=== PATIENT | male | born 1950 | race Caucasian/White ===

== ENCOUNTER → 2017-03-21 | Outpatient (CLI) | payer OTHER ==
[~2017-03-21] VITALS: Ht 180.3 cm; Wt 87.1 kg
[~2017-03-21] MED LIST: ALDACTONE25 MG PO; BYSTOLIC 5 MG5 M1 PO; FLOMAX0.4 MG PO; LISINOPRIL2.5 MG PO; NORVASC5 MG PO; XARELTO20 MG PO; ZYRTEC10 M4 PO
--- NOTE | ~2017-03-21 | DSS ---
[facility] [place] [address] [place] [address] SHORT STAY SUMMARY Name: NORMARACQUEL KAELYN Room #: REG CLTabitha Singh.#: [id number] Admission: 03/21/17 Attend Phys: Jed Green MD, FA Discharge: Date of : 54 Report #: [id number] THIS REPORT FOR: //name// CC: Jed Waldron MD PRIMARY CARE PHYSICIAN: Jed Can M.D. DISCHARGE DIAGNOSES: 1. Hypertension. 2. Non-rheumatic aortic valve insufficiency. 3. Mitral regurgitation. 4. Persistent atrial fibrillation. 5. Nonischemic cardiomyopathy. 6. Previous removal of the melanoma. 7. Prostatism. CONSULTANTS: None. PROCEDURES: Transesophageal echocardiogram. HISTORY OF PRESENT ILLNESS: The patient is a 67-year-old white male who was brought to the Outpatient Department to undergo a LUIS ARMANDO. The patient is cousin and is . He is retired at this time. He has a long history of hypertension and aortic insufficiency, treated medically. Recently complains of fatigue and shortness of breath and is found to be in atrial fibrillation. He was started on Bystolic for rate control and an aspirin a day. I saw him in the clinic on February 06. He becomes short of breath with exertion. He has frequent nocturia. Echocardiogram in the office on February 06 showed an ejection fraction of 30% with fuqjvuvy-hu-fjpaho aortic insufficiency and mild mitral regurgitation. I recommended anticoagulation with Xarelto. He was started on spironolactone. The patient then underwent an outpatient cardiac catheterization at [place] because of possible need for aortic valve replacement and the fact he had a previous coronary calcium score is significantly elevated. He actually had a right and left heart catheterization done by myself at [place]. This showed ccwfvfvw-gn-lpptii aortic insufficiency, at least mild mitral regurgitation and ejection fraction of only 25%. Right heart catheterization actually showed normal filling pressures. He returned to see my nurse practitioner a week later who suggested switching him from amlodipine to lisinopril, but the patient was concerned he developed a cough and he did not take the lisinopril. However, at this time, he denies any significant chest pain, shortness of breath, palpitations, lightheadedness and bleeding. Because of possible need for aortic valve replacement, I recommended a LUIS ARMANDO at this time. [facility] [address] [place] [address] SHORT STAY SUMMARY Name: RACQUEL GREEN II Room #: REG CLI ShawnKerrie#: [id number] Admission: 03/21/17 Attend Phys: Jed Green MD, FA Discharge: Date of : 54 Report #: [id number] PAST MEDICAL HISTORY: Otherwise significant for removal of the melanoma. He has a history of hypertension, but no history of diabetes. CURRENT MEDICATIONS: Consists of Bystolic 10 mg a day. He stopped his Xarelto 2 days ago, amlodipine 10 mg a day and spironolactone 25 mg a day. He recently saw Dr. Can as a primary care physician who started him an alpha jeffrey because of prostatism. PHYSICAL EXAMINATION: GENERAL: Revealed a middle-aged male. VITAL SIGNS: Blood pressure 120/70 and pulse is 70. CHEST: Clear to auscultation. CARDIAC: Irregular rhythm, grade 2 systolic ejection murmur. ABDOMEN: Soft. EXTREMITIES: Has no edema. SKIN: Warm and dry. LABORATORY DATA: His recent lab work on 02/28/2017: Sodium 141, potassium 4.2 and creatinine 0.9. Hemoglobin 16.3. Cholesterol 158, triglycerides 77, HDL 35 and LDL 108. HOSPITAL COURSE: The patient was brought to the Outpatient Department at [facility]. I performed a LUIS ARMANDO. He tolerated the procedure without complications. Results showed moderate mitral dilatation. The left ventricle was mildly dilated with an ejection fraction of only 30%-35%. No thrombus was noted. No evidence of a shunt. The aortic valve was trileaflet and mildly calcified. There is rbpxfkea-il-pgdkai aortic insufficiency. There was only mild mitral and tricuspid insufficiency. The results were discussed with the patient and his . My impression is that he has a nonischemic cardiomyopathy. I am concerned that if his aortic insufficiency is not corrected, he will continue developed left ventricular dilatation and decreased ejection fraction. Therefore, recommended consideration for aortic valve replacement. It does not appear he would need mitral valve repair, in fact the mild amount of mitral regurgitation has been official because his cardiomyopathy in terms of afterload reduction. The patient was discharged to continue his home medications including Bystolic 10 mg a day for rate control of his atrial fibrillation. He was to resume his Xarelto 20 mg a day, spironolactone 25 mg a day and Norvasc 10 mg a day. I preferred not to switch the patient's medications at this time because I suspect he will be undergoing aortic valve replacement in the near future. However, in the future, I would consider switching him from amlodipine to either an ARB or an RUBINA inhibitor. I would also consider switching him from Bystolic to carvedilol for rate control because of his cardiomyopathy. He was to continue his alpha jeffrey for prostatism. He was to contact my office if he had any bleeding or increasing shortness of breath. I recommend that he follow up Dr. Can for routine medical care. He is [facility] [address] [place] [address] SHORT STAY SUMMARY Name: RACQUEL GREEN II Room #: REG SVEN Puga#: [id number] Admission: 03/21/17 Attend Phys: Jed Green MD, FA Discharge: Date of : 54 Report #: [id number] scheduled to see Dr. Waldron next week in the Cardiology Clinic at [facility] for consideration of aortic valve replacement. He does take Ambien for occasional insomnia. He is scheduled to see me in the Cardiology Clinic after followup with Dr. Waldron. <ELECTRONICALLY SIGNED> By: Jed Green MD, FAC 03/25/17 1647 1125 1212 Jed Green MD, FACC /nt
--- NOTE | ~2017-03-21 | TEE ---
[facility] [address] [place] [address] TRANSESOPHAGEAL ECHOCARDIOGRAM Name: RACQUEL GREEN II Room #: REG CL FranciscoKerrie#: [id number] Admission: 03/21/17 Attend Phys: Jed Green MD Discharge: Date of : 54 Date of Service: 03/21/17 1721 Report #: [id number] THIS REPORT FOR: //name// APPROVED REPORT Study performed: 03/21/2017 08:21:27 EXAM: Comprehensive 2D, Doppler, and color-flow Echocardiogram Patient Location: [facility] Room #: 9 Status: routine BSA: 2.07 HR: 96 bpm BP: 138/75 mmHg Other Information Study Quality: Excellent Indications Aortic Valve Disease Mitral Valve Disease Assess Ejection Fraction Atrial Fibrillation Echo Enhancing Agent Indication: Rule out Shunt Agent(s) / Amount(s) Used: Agitated Saline 14 cc Procedure After obtaining informed consent, patient underwent transesophageal echo in the [facility] [employer]. Type of Sedation : Conscious Sedation Sedation was administered by Daisy Muñiz RN. Sedation start time: 951 Case end Time: 1006 Versed (5 mg) Fentanyl (50mcg) Transesophageal probe was inserted and advanced into esophagus without difficulty by Jed Green MD, [facility]. Echo enhancement indication: R/O Septal defect. Echo enhancement agent administered: Agitated Saline The LUIS ARMANDO was performed without complications. Throughout the procedure, the blood pressure, pulse oximetry, cardiac rhythm, and rate were monitored. The patient tolerated the procedure without adverse effects. Recovery from conscious sedation was uneventful and vital signs were [facility] [address] [place] [address] TRANSESOPHAGEAL ECHOCARDIOGRAM Name: RACQUEL GREEN II Room #: REG [facility] [id number] Admission: 03/21/17 Attend Phys: Jed Green MD Discharge: Date of : 54 Date of Service: 03/21/17 1721 Report #: [id number] stable. Left Ventricle Left ventricle is mildly dilated. There is global hypokinesis of the left ventricle. There is normal left ventricular wall thickness. Left ventricular ejection fraction is moderately decreased. LVEF is 30-35%. Right Ventricle The right ventricle is normal size. The right ventricular systolic function is normal. Atria Left atrium is moderately dilated. Interatrial septum is intact without evidence of ASD or PFO. no thrombus noted in the left atrial appendage no evidence of shunt noted by bubble study Right atrium is moderately dilated. Aortic Valve The Aortic valve is sclerotic. Moderate to severe aortic regurgitation There is no aortic valvular stenosis. Mitral Valve The mitral valve is normal in structure. Mild mitral regurgitation. No evidence of mitral valve stenosis. Tricuspid Valve The tricuspid valve is normal in structure. There is mild tricuspid regurgitation. Pulmonic Valve The pulmonary valve is normal in structure. There is no pulmonic valvular regurgitation. Great Vessels The aortic root is normal in size. . Pericardium There is no pericardial effusion. <Conclusion> Left ventricle is mildly dilated. LVEF is 30-35%. Left atrium is moderately dilated. Right atrium is moderately dilated. [facility] [address] [place] [address] TRANSESOPHAGEAL ECHOCARDIOGRAM Name: RACQUEL GREEN II Room #: REG CL Ann#: [id number] Admission: 03/21/17 Attend Phys: Jed Green MD Discharge: Date of : 54 Date of Service: 03/21/171720 Report #: [id number] Moderate to severe aortic regurgitation Mild mitral regurgitation. <ELECTRONICALLY SIGNED> By: Jed Green MD, [facility] 03/21/171720 20 20 Jed Green MD, FACC /INF
[2017-03-21 08:30] VITALS: BP 138/75
== END | disposition home or self-care (01) ==
LOC: CATH 07:33
DX: I08.3 Combined rheumatic disorders of mitral, aortic and tricuspid valves (principal); I11.0 Hypertensive heart disease with heart failure; I50.9 Heart failure, unspecified; I25.10 Atherosclerotic heart disease of native coronary artery without angina pectoris; I42.8 Other cardiomyopathies; Z95.5 Presence of coronary angioplasty implant and graft; Z82.49 Family history of ischemic heart disease and other diseases of the circulatory system; Z85.828 Personal history of other malignant neoplasm of skin; Z98.890 Other specified postprocedural states; Z88.1 Allergy status to other antibiotic agents; Z91.040 Latex allergy status; Z79.899 Other long term (current) drug therapy

== ENCOUNTER 2017-06-19 11:14 | Inpatient (IN) | payer OTHER ==
[~2017-06-19] VITALS: Ht 180.3 cm; Wt 87.9 kg
[2017-06-19] VITALS (20 sets, daily range): BP systolic 105–149; BP diastolic 68–110
--- NOTE | ~2017-06-19 | EKG ---
[address] [place] [address] [place] [address] ELECTROCARDIOGRAM REPORT Name: RACQUEL GREEN KAELYN Room #: 245-P ADM IN M.R.#: [id number] Admission: 06/19/17 Attend Phys: Ruth Currie MD Discharge: Date of : 54 Report #: [id number] THIS REPORT FOR: //name// [facility] Test Date: 2017-06-20 Test Time: 12:54:53 Pat Name: RACQUEL GREEN Department: Room: 245 P Gender: M Lead Performance Support Analyst: Yoli MILLS : 1950 Requested By: Jed Green Order Number: [id number] MD: Chuy Tinajero Measurements Intervals [place] Rate: 54 P: 200 VA: 203 QRS: -50 QRSD: 204 T: 117 QT: 549 QTc: 521 Interpretive Statements Sinus or ectopic atrial rhythm Left bundle branch block Compared to ECG 06/19/2017 12:28:49 Ectopic atrial rhythm now present Left-axis deviation no longer present Electronically Signed On 06-21-2017 7:52:20 TENNIS DESK TEAM MEMBER by Chuy Tinajero [email or web address] <ELECTRONICALLY SIGNED> By: Chuy Tinajero MD, FAC 06/21/17 0752 1254 1254 Chuy Tinajero MD, [facility] /EPI
--- NOTE | ~2017-06-19 | EKG ---
[address] [place] [address] ELECTROCARDIOGRAM REPORT Name: RACQUEL GREEN Room #: 245-P ADM IN M.R.#: [id number] Admission: 06/19/17 Attend Phys: Ruth Currie MD Discharge: Date of : 54 Report #: [id number] THIS REPORT FOR: //name// [facility] ED Test Date: 2017-06-19 Test Time: 12:28:49 Pat Name: RACQUEL GREEN Department: Room: Count includes the [facility] Gender: M Data Coordinator: [email or web address] : 1950 Requested By: Jannet Silverio Order Number: [id number] MD: Chuy Tinajero Measurements Intervals [place] Rate: 115 P: 0 VT: 75 QRS: -62 QRSD: 195 T: 128 QT: 408 QTc: 565 Interpretive Statements Wide-complex tachycardia Leftward axis Left bundle branch block No previous ECG available for comparison Electronically Signed On 06-20-2017 9:23:22 ACCORDION TUNER by Chuy Tinajero [email or web address] <ELECTRONICALLY SIGNED> By: Chuy Tinajero MD, [facility] 06/20/17 0923 D: 128 27 Chuy Tinajero MD, FACC /EPI
--- NOTE | ~2017-06-19 | EKG ---
[address] [place] [address] ELECTROCARDIOGRAM REPORT Name: RACQUEL GREEN ANAND ART Room #: 245-P ADM IN M.R.#: [id number] Admission: 06/19/17 Attend Phys: Ruth Currie MD Discharge: Date of : 54 Report #: [id number] THIS REPORT FOR: //name// [facility] Test Date: 2017-06-20 Test Time: 06:51:25 Pat Name: RACQUEL GREEN Department: Room: 245 P Gender: M Psychological Operations Officer: : 1950 Requested By: Jed Green Order Number: [id number] MD: Chuy Tinajero Measurements Intervals [place] Rate: 82 P: 245 CO: 225 QRS: -60 QRSD: 197 T: 117 QT: 475 QTc: 555 Interpretive Statements Atrial flutter with a controlled ventricular response Borderline prolonged CO interval Left bundle branch block No previous ECG available for comparison Electronically Signed On 06-21-2017 7:39:03 CHIROPRACTIC TEACHER by Chuy Tinajero [email or web address] <ELECTRONICALLY SIGNED> By: Chuy Tinajero MD, [facility] 06/21/17 0739 0651 0651 Chuy Tinajero MD, FACC /EPI
--- NOTE | ~2017-06-19 | EKG ---
[address] [place] [place] [address] ELECTROCARDIOGRAM REPORT Name: RACQUEL GREEN KAELYN Room #: 208-P ADM IN M.R.#: [id number] Admission: 06/19/17 Attend Phys: Ruth Currie MD Discharge: Date of : 54 Report #: [id number] THIS REPORT FOR: //name// [facility] Test Date: 2017-06-22 Test Time: 06:46:21 Pat Name: RACQUEL GREEN Department: Room: 208 P Gender: M Evaluation Assistant: DULCE : 1950 Requested By: Jed Green Order Number: [id number] MD: Chuy Tinajero Measurements Intervals [place] Rate: 66 P: 255 WI: 229 QRS: -60 QRSD: 207 T: 127 QT: 525 QTc: 551 Interpretive Statements Sinus rhythm with first-degree AV block Left bundle branch block Compared to ECG 06/21/2017 07:04:52 No significant change was found Electronically Signed On 06-22-2017 9:21:45 BROADCAST PRODUCER by Chuy Tinajero [email or web address] <ELECTRONICALLY SIGNED> By: Chuy Tinajero MD, [facility] 12920 5 5 Chuy Tinajero MD, [facility] /EPI
--- NOTE | ~2017-06-19 | EKG ---
[place] [address] [facility] [place] [address] ELECTROCARDIOGRAM REPORT Name: RACQUEL GREEN Room #: 245-P ADM IN M.R.#: [id number] Admission: 06/19/17 Attend Phys: Ruth Currie MD Discharge: Date of : 54 Report #: [id number] THIS REPORT FOR: //name// [facility] ED Test Date: 2017-06-19 Test Time: 11:18:08 Pat Name: RACQUEL GREEN Department: Room: [facility] Gender: M Automotive Technician Instructor: [id number] : 1950 Requested By: Jannet Silverio Order Number: [id number] MD: Chuy Tinajero Measurements Intervals [place] Rate: 174 P: 74 [place]: 133 QRS: -65 QRSD: 176 T: 124 QT: 331 QTc: 564 Interpretive Statements Extreme tachycardia with wide complex, no further rhythm analysis attempted Baseline wander in lead(s) V5 No previous ECG available for comparison Electronically Signed On 06-20-2017 9:21:57 BARNWORKER GROOM by Chuy Tinajero [email or web address] <ELECTRONICALLY SIGNED> By: Chuy Tinajero MD, [facility] 06/20/17 0921 17 Chuy Tinajero MD, [facility] /EPI
--- NOTE | ~2017-06-19 | EKG ---
[address] [place] [address] ELECTROCARDIOGRAM REPORT Name: RACQUEL GREEN KAELYN Room #: 245-P ADM IN M.R.#: [id number] Admission: 06/19/17 Attend Phys: Ruth Currie MD Discharge: Date of : 54 Report #: [id number] THIS REPORT FOR: //name// [facility] Test Date: 2017-06-21 Test Time: 07:04:52 Pat Name: RACQUEL GREEN Department: Room: 245 P Gender: M Consultant Dietitian: jonathan : 1950 Requested By: Jed Green Order Number: [id number] MD: Chuy Tinajero Measurements Intervals [place] Rate: 75 P: [place]: QRS: -55 QRSD: 204 T: 117 QT: 500 QTc: 559 Interpretive Statements Sinus rhythm Left bundle branch block Compared to ECG 06/19/2017 12:28:49 No significant change was found Electronically Signed On 06-21-2017 8:28:07 CLAMSHELL OPERATOR by Chuy Tinajero [email or web address] <ELECTRONICALLY SIGNED> By: Chuy Tinajero MD, [facility] 06/21/17 0828 3 3 Chuy Tinajero MD, [facility] /EPI
--- NOTE | ~2017-06-19 | CATHLAB ---
[facility] [address] [place] [address] INVASIVE PROCEDURE REPORT Name: RACQUEL GREEN II Room #: 208-P [facility] IN M.R.#: [id number] Admission: 06/19/17 Attend Phys: Ruth Currie Discharge: Date of : 54 Date of Service: 06/20/17 1246 Report #: [id number] THIS REPORT FOR: //name// CC: Jed Currie DATE OF SERVICE: 06/20/2017 TITLE OF PROCEDURE: Direct current cardioversion of atrial tachycardia. INDICATIONS: The patient was noted to be in atrial tachycardia with 2:1 ventricular response rate. The patient had been loaded with amiodarone and was on Xarelto at the time of the procedure. DESCRIPTION OF PROCEDURE: The patient brought to the cardiac catheterization lab in the fasting state after signing informed consent. Hands-free cardioversion patches were applied in the anterior and posterior location. Moderate sedation was accomplished by administering a total of 5 mg of Versed and 75 mcg of fentanyl intravenously in divided doses. The patient was then cardioverted with 50 joules of direct current energy. The patient converted to sinus bradycardia. The patient tolerated the procedure well and was transferred to a monitored bed in stable condition. IMPRESSION: Successful direct current cardioversion of an atrial tachycardia to sinus bradycardia. <ELECTRONICALLY SIGNED> By: Jed Green MD, [facility] 06/21/17 1625 1246 1843 Jed Green MD, FACC /nt
--- NOTE | ~2017-06-19 | 2DMMODE ---
[facility] [address] [place] [address] 2 D/M-MODE ECHOCARDIOGRAM Name: NORMARACQUEL MICHEL Room #: 245-P ADM IN M.R.#: [id number] Admission: 06/19/17 Attend Phys: Ruth Currie Discharge: Date of : 54 Date of Service: 06/20/17 1507 Report #: [id number] THIS REPORT FOR: //name// APPROVED REPORT Study performed: 06/20/2017 14:18:04 EXAM: Comprehensive 2D, Doppler, and color-flow Echocardiogram Patient [facility]: [facility] Room #: [facility] Status: routine BSA: 2.13 HR: 59 bpm BP: 106/94 mmHg Other Information Study Quality: Excellent Indications Aflutter status post cardioversion. Hx: AVR (05/2017) Cardiomyopathy 2D Dimensions RVDd: 51.24 mm LVEF(%): 40.80 (>50%) IVSd: 11.00 (7-11mm) LVOT Diam: 22.56 (18-24mm) LVDd: 73.51 mm PWd: 11.00 (7-11mm) Ascending Ao: 36.16 (22-36mm) LVDs: 58.34 (25-40mm) Aortic Root: 33.96 mm Duque's LVEF: 40.80 % Volumes Left Atrial Volume (Systole) Single Plane 4CH: 127.54 mL Single Plane 2CH: 163.33 mL Aortic Valve AoV Peak Francis.: 1.89 m/s AO Peak Gr.: 14.21 mmHg LVOT Max P.78 mmHg AO Mean Gr.: 7.94 mmHg AO V2 Mean: 1.33 m/s LVOT Max V: 0.97 m/s AO V2 VTI: 34.87 cm PEDRO Vmax: 2.06 cm2 Mitral Valve MV Decel. Time: 194.81 ms [facility] [place] [address] 2 D/M-MODE ECHOCARDIOGRAM Name: RACQUEL GREEN Room #: 245-P [facility] IN ..#: [id number] Admission: 06/19/17 Attend Phys: Ruth Currie Discharge: Date of : 54 Date of Service: 06/20/17 1507 Report #: [id number] E Max Francis.: 0.78 m/s IVRT: 101.50 ms Pulmonary Valve PV Peak Francis.: 1.08 m/s PV Peak Gr.: 4.67 mmHg Tricuspid Valve TR Peak Francis.: 2.78 m/s RAP Estimate: 15.00 mmHg TR Peak Gr.: 31.00 mmHg PA Pressure: 46.00 mmHg Left Ventricle Left ventricle is severely dilated. There is global hypokinesis of the left ventricle. There is normal left ventricular wall thickness. Left ventricular systolic function is severely decreased. LVEF is 25%. This study is not technically sufficient to allow evaluation of the LV diastolic function. Right Ventricle Right ventricle is moderately dilated. Right ventricle is moderately hypokinetic. Atria Left atrium is severely dilated. Small PFO is noted. Right atrium is severely dilated. Aortic Valve Bioprosthetic aortic valve is present. Trace to mild aortic regurgitation. There is no aortic valvular stenosis. Mitral Valve The mitral valve is normal in structure. Mild to Moderate mitral regurgitation. Tricuspid Valve The tricuspid valve is normal in structure. Moderate tricuspid regurgitation. Estimated PAP is 46mmHg. Pulmonic Valve The pulmonary valve is normal in structure. Trace pulmonic regurgitation. Great Vessels The aortic root is normal in size. The ascending aorta is normal in size. IVC is dilated and collapses <50% with inspiration. [address] [address] 2 D/M-MODE ECHOCARDIOGRAM Name: NORMARACQUEL ANAND ART Room #: 245-P [facility] IN ..#: [id number] Admission: 06/19/17 Attend Phys: Ruth Currie Discharge: Date of : 54 Date of Service: 06/20/17 1507 Report #: [id number] Pericardium Trace pericardial effusion. <Conclusion> Left ventricle is severely dilated. There is global hypokinesis of the left ventricle. LVEF is 25%. Right ventricle is moderately dilated. Right ventricle is moderately hypokinetic. Left atrium is severely dilated. Right atrium is severely dilated. Bioprosthetic aortic valve is present. There is no aortic valvular stenosis. Trace to mild aortic regurgitation. Mild to Moderate mitral regurgitation. Trace pericardial effusion. <ELECTRONICALLY SIGNED> By: Sharath Cyr MD, FACC 06/20/17 1507 1507 1507 Sharath Cyr MD, FACC /INF
--- NOTE | ~2017-06-19 | HC ---
[facility] [place] [address] CONSULTATION Name: RACQUEL GREEN II Room #: 208-P ADM IN M.R.#: [id number] Admission: 06/19/17 Attend Phys: Ruth Currie MD Discharge: Date of : 54 Report #: [id number] THIS REPORT FOR: //name// CC: Jed Currie DATE OF SERVICE: 06/19/2017 HISTORY OF PRESENT ILLNESS: The patient is a 67-year-old white male who came to the Emergency Room complaining of weakness and shortness of breath. The patient had previous echocardiogram showing evidence of moderate aortic insufficiency. He presented this summer complained of fatigue and shortness of breath. He was found to be in atrial fibrillation. He was started on Bystolic for rate control and an aspirin a day. I saw him in the office and had an echocardiogram that showed ejection fraction of only 30% with moderate to severe aortic insufficiency. I then performed coronary angiography that showed minimal coronary artery disease. He underwent a LUIS ARMANDO that confirmed significant aortic insufficiency. 2-1/2 weeks ago, he underwent aortic valve replacement at [facility] by Dr. Ken Waldron and included a Maze procedure. His postoperative course was uncomplicated. He was placed back on Xarelto. Since his discharge, he has gradually improved. He returned to see Dr. Waldron in the surgical clinic. His incision is healing well. Several days ago, he had a significant nosebleed. He contacted my office and I instructed him to discontinue the Xarelto and aspirin. His nosebleed resolved. However, he contacted my office this morning and he complained of significant lightheadedness, shortness of breath, fatigue. He attempted to take his blood pressure at home, but it would not register. I instructed him to come to the Emergency Room. When he arrived in the Emergency Room today, he was found to be a wide complex tachycardia. He was admitted for further evaluation and treatment. He denies any significant chest pain, fever. He does have a chronic cough. He has had no significant edema, syncope. PAST MEDICAL HISTORY: Otherwise significant for removal of a melanoma. He has a history of hypertension, but no history of diabetes. CURRENT MEDICATIONS: Consists of Flomax, carvedilol, Proscar, losartan. He has previously been on amlodipine. ALLERGIES: HE HAS INTOLERANCE TO LATEX AND NEOMYCIN. FAMILY HISTORY: His father had coronary artery bypass surgery. SOCIAL HISTORY: He is . 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 He lives in [place], [place]. He is actually my first cousin. He has no history of smoking or alcohol abuse. [facility] [address] [place] [address] CONSULTATION Name: NORMARACQUEL ANAND Room #: 208-P [facility] IN M.R.#: [id number] Admission: 06/19/17 Attend Phys: Ruth Currie MD Discharge: Date of : 54 Report #: [id number] REVIEW OF SYSTEMS: He has had no history of stroke, asthma, peptic ulcer disease. He does have a chronic cough. He has had insomnia. No history of liver disease, kidney disease, psychiatric illness, chronic skin condition. PHYSICAL EXAMINATION: GENERAL: Revealed a middle-aged male lying in bed, he appeared in no acute distress. VITAL SIGNS: His blood pressure of 100/60, pulse is 110, Respirations nonlabored, saturation 99%. HEENT: He is anicteric, conjunctiva pink. Mucous members appear moist. NECK: Veins do not appear distended. No carotid bruits. CHEST: Clear to auscultation. CARDIOVASCULAR: Irregular tachycardia, grade 2 systolic ejection murmur. ABDOMEN: Soft. EXTREMITIES: Had trace edema. Dorsalis pedis pulse 1+ bilaterally. SKIN: Cool and dry. LABORATORY DATA: ECG on admission showed a wide complex tachycardia with axis, left bundle branch block morphology. Follow up ECG after amiodarone appears to show atrial flutter with a variable ventricular response rate. His workup in the Emergency Room, sodium 133, creatinine 1.4, glucose 219. Troponin 0.10. INR 1.4. White blood cell count 9.2, hemoglobin 11.8. He had a CT scan of the chest that showed cardiomegaly, small pericardial effusion, small pleural effusions. IMPRESSION AND RECOMMENDATIONS: 1. Wide complex tachycardia. Suspect atrial flutter. The patient on amiodarone. I would resume anticoagulation. IF he fails to convert, I would consider cardioversion. 2. History of hypertension. I would hold his beta jeffrey, ARB and calcium jeffrey at this time. 3. Status post aortic valve replacement using tissue valve. Recommend repeat echocardiogram after the patient has been cardioverted. 4. Cardiomyopathy. I would consider resuming spironolactone. 5. Previous removal of melanoma. 6. Frequent coughing. Noted even before his surgery. I would recommend a Pulmonary consult. 7. Recent nosebleed. If recurrent, he would require cauterization. <ELECTRONICALLY SIGNED> By: Jed Green MD, [facility] 06/21/17 [id number] [id number] Jed Green MD, FACC /nt
--- NOTE | ~2017-06-19 | H ---
[facility] [place] [address] HISTORY AND PHYSICAL Name: RACQUEL GREEN II Room #: 245-P ADM IN M.R.#: [id number] Admission: 06/19/17 Attend Phys: Ruth Currie MD Discharge: Date of : 54 Report #: [id number] THIS REPORT FOR: //name// CC: Jed Currie DATE OF SERVICE: 06/19/2017 CHIEF COMPLAINT: Weakness and shortness of breath. HISTORY OF PRESENT ILLNESS: The patient is a 67-year-old man who had aortic valve replacement with bioprosthetic valve about 3 weeks ago at [facility]. The patient has done well after surgery and he went home in a stable condition. Over the weekend, the patient had nosebleeds, so Xarelto that he takes for AFib was held. The patient was doing well until this morning when he experienced weakness and shortness of breath. He came to the Emergency Room. The patient was found to have heart rate is 170s. EKG was consistent with ventricular tachycardia. He was started on amiodarone as well as he received digoxin. This resulted in slower heart rate and currently the patient's heart rate is in the 120s. He is asymptomatic and he feels much better. PAST MEDICAL HISTORY: 1. Hypertension. 2. Atrial fibrillation. 3. Status post aortic valve replacement 3 weeks ago. 4. History of skin cancer. 5. BPH. CURRENT MEDICATIONS: The patient is on Xarelto 20 mg a day, finasteride 5 mg a day, losartan 50 mg a day, Flomax mg a day and carvedilol 6.25 mg a day. FAMILY HISTORY: Reviewed and not pertinent to the patient's current condition. SOCIAL HISTORY: The patient does not smoke cigarettes and does not drink alcohol. REVIEW OF SYSTEMS: As above in HPI section, all others negative. PHYSICAL EXAMINATION: GENERAL: The patient is healthy looking, middle-aged man in no apparent distress. He is alert and oriented x 3. VITAL SIGNS: His blood pressure is 125/68, heart rate is 121, respiration is 14-25 and oxygen saturation is 98%. HEENT: Pupils are equal. Eye movements are normal. The patient has [facility] [address] [place] [address] HISTORY AND PHYSICAL Name: RACQUEL GREEN Room #: [address] [place] [address] [place] ..#: [id number] Admission: 06/19/17 Attend Phys: Ruth Currie MD Discharge: Date of : 54 Report #: [id number] sclerae. NECK: He has no JVD. Carotid bruits are not appreciated. Oral mucosa is moist. He has no JVD. RESPIRATORY: Chest moves symmetrically with breathing. Lungs are clear to auscultation bilaterally. CARDIOVASCULAR: The patient is tachycardic. He has regular rhythm and rate. Murmurs, gallops or rubs are not appreciated. GASTROINTESTINAL: Abdomen is soft, nondistended and nontender. Bowel sounds are present. The patient has no hepatomegaly or splenomegaly. EXTREMITIES: There is no edema, cyanosis or clubbing. He has no joint deformities. NEUROLOGIC: The patient is alert and oriented x 3. Examination is grossly nonfocal. LABORATORY DATA: Basic metabolic profile shows sodium of 133. Rest of the electrolytes is normal. Creatinine is 1.4. Troponin is 0.1. Glucose is 219. Coagulation profile is normal. On CBC, white count is normal, hemoglobin is 11.8, hematocrit is 35.8, platelets 208. CT angiography of chest shows no PE. The patient has cardiomegaly and small bilateral pleural effusion. ASSESSMENT AND PLAN: 1. Wide complex tachycardia, ventricular tachycardia versus atypical presentation of atrial fibrillation. Grounds Cleaner is already consulted. As noted, after digoxin and amiodarone, heart rate is slower and the patient is now asymptomatic. The patient has been converted in normal sinus rhythm. Cardioversion is considered. Xarelto will be continued. 2. Epistaxis few days ago, resolved. Again, the patient is hemodynamically stable. Hemoglobin is acceptable and there is no evidence of active bleeding. 3. Slightly elevated creatinine at 1.4. Baseline is not known. Follow up kidney function. 4. Random hyperglycemia with glucose of 219. There is no history of diabetes. Follow up glucose levels and check hemoglobin A1c. 5. Hypertension. Blood pressure was borderline low earlier today and currently it is normal. Carvedilol and losartan are held for the time being. <ELECTRONICALLY SIGNED> By: Ruth Currie MD 06/20/17 [id number] [id number] Ruth Currie MD /nt
[2017-06-19 11:42] LABS: ABSOLUTE NEUTROPHILS 7.2 thou/uL (1.4-8.2); BASOPHILS 0.9 % (0.0-2.0); EOSINOPHILS 0.7 % (0.0-3.0); HEMATOCRIT 35.8 % (42.0-52.0); HEMOGLOBIN 11.8 gm/dL (14.0-18.0); LYMPHOCYTES 12.7 % (24.0-44.0); MANUAL DIFF NO; MCH 30.6 pg (26.0-34.0); MCV 92.8 fL (80.0-100.0); MONOCYTES 7.3 % (1.0-8.0); PLATELET COUNT 208 thou/uL (150-400); POLYS 78.4 % (36.0-66.0); RBC 3.86 mil/uL (4.50-6.00); WBC 9.2 thou/uL (4.0-11.0)
[2017-06-19 11:49] LABS: CALCIUM 8.7 mg/dL (8.5-10.1); CREATININE 1.4 mg/dL (0.7-1.3); POTASSIUM 4.6 mmol/L (3.5-5.1)
[2017-06-19] MEDS ORDERED: CARVEDILOL6.25 MG (11:53)
[2017-06-19] MEDS ORDERED: COZAAR 50 MG TA50 M2 PO (11:53)
[2017-06-19] MEDS ORDERED: PROSCAR 5MG TABL5 MG PO (11:53)
[2017-06-19] MEDS ORDERED: FLOMAX0.4 MG PO (11:54)
[2017-06-19 11:57] LABS: APTT 29.1 Seconds (24.5-32.8); INR 1.4; PROTIME 13.9 Seconds (9.3-11.4)
[2017-06-19 11:58] LABS: TROPONIN-I 0.1 ng/mL (<0.06)
[2017-06-19 17:33] LABS: ALBUMIN 2.9 g/dL (3.4-5.0); DIRECT BILIRUBIN 0.7 mg/dL (<0.1-0.3); TOTAL BILIRUBIN 1.3 mg/dL (<0.1-1.0)
[2017-06-20] VITALS (56 sets, daily range): BP systolic 106–142; BP diastolic 68–125
[2017-06-20 03:07] LABS: GLYCOHEMOGLOBIN (HGB A1C) 5.5 % (4.8-5.6)
[2017-06-20 03:55] LABS: ABSOLUTE NEUTROPHILS 5.5 thou/uL (1.4-8.2); BASOPHILS 0.5 % (0.0-2.0); EOSINOPHILS 0.3 % (0.0-3.0); HEMATOCRIT 32.8 % (42.0-52.0); LYMPHOCYTES 15.7 % (24.0-44.0); MCHC 33.4 g/dL (28.0-37.0); MCV 92.8 fL (80.0-100.0); MONOCYTES 11.6 % (1.0-8.0); PLATELET COUNT 159 thou/uL (150-400); POLYS 71.9 % (36.0-66.0); RBC 3.53 mil/uL (4.50-6.00); RDW 15.3 % (10.5-14.5); WBC 7.7 thou/uL (4.0-11.0)
[2017-06-20 04:00] LABS: MANUAL DIFF NO
[2017-06-20 05:06] LABS: ALBUMIN 2.8 g/dL (3.4-5.0); CREATININE 1.1 mg/dL (0.7-1.3); POTASSIUM 4.3 mmol/L (3.5-5.1); TOTAL BILIRUBIN 1.1 mg/dL (<0.1-1.0); TOTAL PROTEIN 5.8 g/dL (6.4-8.2)
[2017-06-20 05:20] LABS: ANISOCYTOSIS 1+; LARGE PLATELETS FEW; POLYCHROMASIA 1+
[2017-06-21] VITALS (14 sets, daily range): BP systolic 123–140; BP diastolic 80–100
[2017-06-22 04:23] VITALS: BP 132/87
[2017-06-22 04:45] LABS: CALCIUM 8.4 mg/dL (8.5-10.1); CREATININE 1.2 mg/dL (0.7-1.3); POTASSIUM 4.4 mmol/L (3.5-5.1)
[2017-06-22 08:30] VITALS: BP 129/92
[2017-06-22] MEDS ORDERED: ALDACTONE25 MG PO (08:30)
[2017-06-22] MEDS ORDERED: PACERONE 200 M200 M1 PO (08:30)
[2017-06-22] MEDS ORDERED: PANTOPRAZOLE SO40 M1 PO (08:31)
[2017-06-22 10:24] VITALS: BP 129/92
[2017-06-22 11:51] VITALS: BP 129/92
== END 2017-06-22 11:34 | disposition home or self-care (01) | DRG 308 ==
LOC: ER 11:14 → EROBS 13:31 → ICU 13:31 → EROBS 14:51 → ICU 15:27 → 2N 06-21 11:13 → ENTRNSPT 06-22 11:24 → EDTRNSPTSTS 06-22 11:26 → 2N 06-22 11:34
PROVIDERS: Emergency Medicine; Internal Medicine Cardiovascular Disease; Internal Medicine Endocrinology, Diabetes & Metabolism; Internal Medicine Pulmonary Disease
PROC: 5A2204Z Restoration of Cardiac Rhythm, Single (ICD-10-PCS; principal; 2017-06-20)
DX: I48.91 Unspecified atrial fibrillation (principal); N17.0 Acute kidney failure with tubular necrosis; R04.0 Epistaxis; I42.9 Cardiomyopathy, unspecified; I48.92 Unspecified atrial flutter; K21.9 Gastro-esophageal reflux disease without esophagitis; N40.0 Benign prostatic hyperplasia without lower urinary tract symptoms; R73.9 Hyperglycemia, unspecified; N28.9 Disorder of kidney and ureter, unspecified; T45.515A Adverse effect of anticoagulants, initial encounter; I44.7 Left bundle-branch block, unspecified; I35.1 Nonrheumatic aortic (valve) insufficiency; I10 Essential (primary) hypertension; Z88.1 Allergy status to other antibiotic agents; Z91.048 Other nonmedicinal substance allergy status; Z79.899 Other long term (current) drug therapy; Z91.040 Latex allergy status; Z82.49 Family history of ischemic heart disease and other diseases of the circulatory system; Y92.89 Other specified places as the place of occurrence of the external cause; Z85.820 Personal history of malignant melanoma of skin
CPT/HCPCS: 10081; 10203

== ENCOUNTER → 2018-01-21 | Outpatient (CLI) | payer OTHER ==
[~2018-01-21] MED LIST changes: +CARVEDILOL6.25 MG; +COZAAR 50 MG TA50 M2 PO; +PACERONE 200 M200 M1 PO; +PANTOPRAZOLE SO40 M1 PO; +PROSCAR 5MG TABL5 MG PO
[2018-01-21 10:10] LABS: CREATININE 1.3 mg/dL (0.7-1.3)
== END ==
LOC: CAT 09:16
PROVIDERS: Internal Medicine Cardiovascular Disease
DX: I25.10 Atherosclerotic heart disease of native coronary artery without angina pectoris (principal); I42.9 Cardiomyopathy, unspecified; I48.0 Paroxysmal atrial fibrillation; Z88.1 Allergy status to other antibiotic agents